=== PATIENT | female | born 1980 | race Caucasian/White ===

== ENCOUNTER 2017-05-22 06:54 | Emergency (ER) | payer SELFPAY ==
[~2017-05-22] VITALS: Ht 167.6 cm; Wt 71.6 kg
[2017-05-22 07:11] VITALS: BP 159/96; PULSE 81; RESP 18; TEMP 97.3; O2SAT 99
[2017-05-22] MEDS ORDERED: SODIUM CHLOR 0.9% 1000 ML INJ 1,000 ML IV SCH (10:26)
[2017-05-22] MEDS ORDERED: SODIUM CHLORIDE 0.9% FLUSH 10 ML FLUSH IV FLUSH PRN (10:30)
[2017-05-22] MEDS ORDERED: MORPHINE SULFATE 4 MG/ML INJ IV PUSH ONE (10:30)
[2017-05-22] MEDS ORDERED: ONDANSETRON HCL 4 MG/2 ML VIAL IVP ONE (10:30)
[2017-05-22] MEDS ORDERED: KETOROLAC TROMETHAMINE 30 MG/ML (IVP) VIAL IVP ONE (10:30)
--- NOTE | 2017-05-22 10:33 | PD ---
HPI Chief Complaint: Flank/Kidney Pain Time Seen by Provider: 10:21 Travel History International Travel<30 days: No Contact w/Intl Traveler<30days: No Traveled to known affect area: No History of Present Illness HPI The patient is a 36-year-old female who presents to the emergency department for nausea, vomiting, and abdominal pain. The patient states she was awakened at 3 AM with abdominal pain. Abdominal pain is located mostly in the epigastrium, radiates to her flanks bilaterally, was associated with one episode of nausea and vomiting upon arrival to the emergency department. The patient denies any acute diarrhea or constipation. 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 She denies any dysuria, frequency, urgency, or hematuria. She denies any chest pain, shortness breath, fever, chills, or sweats. Symptoms are moderate, there are no current alleviating or exacerbating factors. PFSH Past Medical History Medical History: Denies Significant Hx Past Surgical History Narrative Surgical congenital absence of uterus Social History Alcohol Use: Yes (occasional) Tobacco Use: No Allergies-Medications (Allergen,Severity, Reaction): Coded Allergies: No Known Allergies (Unverified , 05/22/17) Review of Systems Except as stated in HPI: all other systems reviewed are Neg General / Constitutional: No: Fever Cardiovascular: No: Chest Pain or Discomfort Respiratory: No: Shortness of Breath Gastrointestinal: Positive: Nausea, Vomiting, Abdominal Pain, No: Diarrhea, Constipation, Changes in Bowel Habits Genitourinary: Positive: Other (congenital absence of uterus), No: Urgency, Frequency, Dysuria, Hematuria Skin: No Rash Physical Exam Narrative GENERAL: Awake, alert, pleasant 36-year-old female who appears her stated age and is in no acute respiratory distress. She does appear in mild discomfort. SKIN: Focused skin assessment warm/dry. Freckling of the abdominal wall noted. HEAD: Atraumatic. Normocephalic. EYES: Pupils equal and round. No scleral icterus. No injection or drainage. ENT: No nasal bleeding or discharge. Mucous membranes pink and moist. NECK: Trachea midline. No JVD. CARDIOVASCULAR: Regular rate and rhythm. No murmur appreciated. RESPIRATORY: No accessory muscle use. Clear to auscultation. Breath sounds equal bilaterally. GASTROINTESTINAL: Abdomen soft, mild tenderness in the left and right upper quadrant as well as left lower quadrant. Negative McBurney's. MUSCULOSKELETAL: No obvious deformities. No clubbing. No cyanosis. No edema. NEUROLOGICAL: Awake and alert. No obvious cranial nerve deficits. Motor grossly within normal limits. Normal speech. PSYCHIATRIC: Appropriate mood and affect; insight and judgment normal. Data Data Last Documented VS Vital Signs Date Time Temp Pulse Resp B/P (MAP) Pulse Ox O2 Delivery O2 Flow Rate FiO2 05/22/17 11:36 16 05/22/17 11:23 98 Room Air 05/22/17 07:11 97.3 81 Orders Orders Complete Blood Count With Diff (05/22/17 10:26) Comprehensive Metabolic Panel (05/22/17 10:26) Lipase (05/22/17 10:26) Urinalysis - C+S If Indicated (05/22/17 10:26) Iv Access Insert/Monitor (05/22/17 10:26) Ecg Monitoring (05/22/17 10:26) Oximetry (05/22/17 10:26) Morphine Inj (Morphine Inj) (05/22/17 10:30) Ondansetron Inj (Zofran Inj) (05/22/17 10:30) Sodium Chlor 0.9% 1000 Ml Inj (Ns 1000 M (05/22/17 10:26) Sodium Chloride 0.9% Flush (Ns Flush) (05/22/17 10:30) Ketorolac Inj (Toradol Inj) (05/22/17 10:30) Ct Abd/Pel W/O Iv Contrast (05/22/17 ) Labs Laboratory Tests Test 05/22/17 10:45 05/22/17 10:56 05/22/17 11:50 Urine Collection Type CLEAN CATCH Urine Color YELLOW Urine Turbidity CLEAR Urine pH 7.0 Urine Specific [place] 1.026 Urine Protein NEG mg/dL Urine Glucose (UA) NEG mg/dL Urine Ketones TRACE mg/dL Urine Occult Blood NEG Urine Nitrite NEG Urine Bilirubin NEG Urine Leukocyte Esterase NEG Urine RBC 0-3 /hpf Urine WBC 0-2 /hpf Urine Transitional Epithelial Cells 6-8 /hpf Microscopic Urinalysis Comment CULT NOT INDICATED Urine Collection Time 10:45 White Blood Count 9.3 TH/MM3 Red Blood Count 4.64 MIL/MM3 Hemoglobin 14.0 GM/DL Hematocrit 41.4 % Mean Corpuscular Volume 89.3 FL Mean Corpuscular Hemoglobin 30.2 PG Mean Corpuscular Hemoglobin Concent 33.8 % Red Cell Distribution Width 12.9 % Platelet Count 306 TH/MM3 Mean Platelet Volume 8.4 FL Neutrophils (%) (Auto) 89.5 % Lymphocytes (%) (Auto) 7.4 % Monocytes (%) (Auto) 1.3 % Eosinophils (%) (Auto) 0.3 % Basophils (%) (Auto) 1.5 % Neutrophils # (Auto) 8.4 TH/MM3 Lymphocytes # (Auto) 0.7 TH/MM3 Monocytes # (Auto) 0.1 TH/MM3 Eosinophils # (Auto) 0.0 TH/MM3 Basophils # (Auto) 0.1 TH/MM3 CBC Comment DIFF FINAL Differential Comment Blood Urea Nitrogen 14 MG/DL Creatinine 0.66 MG/DL Random Glucose 111 MG/DL Total Protein 6.8 GM/DL Albumin 3.5 GM/DL Calcium Level 8.3 MG/DL Alkaline Phosphatase 81 U/L Aspartate Amino Transf (AST/SGOT) 15 U/L Alanine Aminotransferase (ALT/SGPT) 23 U/L Total Bilirubin 0.4 MG/DL Sodium Level 136 MEQ/L Potassium Level 4.0 MEQ/L Chloride Level 102 MEQ/L Carbon Dioxide Level 28.4 MEQ/L Anion Gap 6 MEQ/L Estimat Glomerular Filtration Rate 100 ML/MIN Lipase 129 U/L MDM Medical Decision Making Medical Screen Exam Complete: Yes Emergency Medical Condition: Yes Medical Record Reviewed: Yes Interpretation(s) Laboratory Tests Test 05/22/17 10:45 05/22/17 10:56 05/22/17 11:50 Urine Collection Type CLEAN CATCH Urine Color YELLOW Urine Turbidity CLEAR Urine pH 7.0 Urine Specific [place] 1.026 Urine Protein NEG mg/dL Urine Glucose (UA) NEG mg/dL Urine Ketones TRACE mg/dL Urine Occult Blood NEG Urine Nitrite NEG Urine Bilirubin NEG Urine Leukocyte Esterase NEG Urine RBC 0-3 /hpf Urine WBC 0-2 /hpf Urine Transitional Epithelial Cells 6-8 /hpf Microscopic Urinalysis Comment CULT NOT INDICATED Urine Collection Time 10:45 White Blood Count 9.3 TH/MM3 Red Blood Count 4.64 MIL/MM3 Hemoglobin 14.0 GM/DL Hematocrit 41.4 % Mean Corpuscular Volume 89.3 FL Mean Corpuscular Hemoglobin 30.2 PG Mean Corpuscular Hemoglobin Concent 33.8 % Red Cell Distribution Width 12.9 % Platelet Count 306 TH/MM3 Mean Platelet Volume 8.4 FL Neutrophils (%) (Auto) 89.5 % Lymphocytes (%) (Auto) 7.4 % Monocytes (%) (Auto) 1.3 % Eosinophils (%) (Auto) 0.3 % Basophils (%) (Auto) 1.5 % Neutrophils # (Auto) 8.4 TH/MM3 Lymphocytes # (Auto) 0.7 TH/MM3 Monocytes # (Auto) 0.1 TH/MM3 Eosinophils # (Auto) 0.0 TH/MM3 Basophils # (Auto) 0.1 TH/MM3 CBC Comment DIFF FINAL Differential Comment Blood Urea Nitrogen 14 MG/DL Creatinine 0.66 MG/DL Random Glucose 111 MG/DL Total Protein 6.8 GM/DL Albumin 3.5 GM/DL Calcium Level 8.3 MG/DL Alkaline Phosphatase 81 U/L Aspartate Amino Transf (AST/SGOT) 15 U/L Alanine Aminotransferase (ALT/SGPT) 23 U/L Total Bilirubin 0.4 MG/DL Sodium Level 136 MEQ/L Potassium Level 4.0 MEQ/L Chloride Level 102 MEQ/L Carbon Dioxide Level 28.4 MEQ/L Anion Gap 6 MEQ/L Estimat Glomerular Filtration Rate 100 ML/MIN Lipase 129 U/L CT of the abdomen and pelvis without contrast reveals multiple small calcified gallstones with no definite gallbladder wall thickening or inflammatory change. 2.6 x 2.9 cm left ovarian cystic lesion. Unremarkable bowel gas pattern and normal appendix. Small amount of fluid in the cul-de-sac which could be a physiologic finding in a female patient of this age. Differential Diagnosis Differential diagnosis includes gastritis, pancreatitis, peptic ulcer disease, cholecystitis, choledocholithiasis, biliary colic, enteritis, ileus, viral syndrome, pyelonephritis, nephrolithiasis. Narrative Course IV was established, labs are drawn and sent, and the patient was placed on cardiac telemetry monitoring and continuous pulse oximetry monitoring. The patient was administered morphine, Toradol, Zofran, and IV fluids. UA was sent to lab. Noncontrast CT of the abdomen and pelvis was ordered. UA is unremarkable. The patient's labs are unremarkable. LFTs and lipase are within normal limits. WBC is normal. The patient was reevaluated at 12:45 PM, her symptoms had significantly improved. Abdominal exam is benign. CT did show gallstones, but no gallbladder wall thickening, she does have an ovarian cyst and physiologic fluid in the pelvis, otherwise unremarkable. Patient is afebrile labs are unremarkable which is reassuring. Abdominal exam is reassuring. She will be provided a copy of her CT results and lab results at discharge. Diagnosis Primary Impression: Abdominal pain Qualified Codes: R10.10 - Upper abdominal pain, unspecified Patient Instructions: General Instructions Additional Instructions: Medications as directed. Follow-up with your primary physician. Return if symptoms worsen or progress. Please provide the patient a copy of her CT results and lab results at discharge. Med/Other Pt SpecificInfo: Prescription(s) given Scripts Dicyclomine (Bentyl) 10 Mg Cap 10 MG PO TID Y for Bowel Management, #15 CAP 0 Refills Prov: Julian Herrera MD 05/22/17 Ondansetron Odt (Zofran Odt) 4 Mg Tab 4 MG SL Q6HR Y for Nausea/Vomiting, #10 TAB 0 Refills Prov: Julian Herrera MD 05/22/17 Hydrocodone-Acetaminophen ([place]) 5-325 mg Tab 1 TAB PO Q6H Y for PAIN, #15 TAB 0 Refills Prov: Julian Herrera MD 05/22/17 Disposition: 01 DISCHARGE HOME Condition: Stable Julian Herrera MD May 22, 2017 10:33
[2017-05-22 11:04] LABS: BLOOD, URINE NEG (NEG); GLUCOSE,URINE NEG (NEG); KETONE, URINE TRACE mg/dL (NEG); NITRITE,URINE NEG (NEG)
[2017-05-22 11:13] LABS: COMMENT (UR) CULT NOT INDICATED; CULTURE IF INDICATED CULT NOT INDICATED; METHOD OF COLLECTION CLEAN CATCH; RBC, URINE 0-3 /hpf (0-3); URINE COLOR YELLOW (YELLW/STRAW); WBC, URINE 0-2 /hpf (0-5)
[2017-05-22 11:19] LABS: AUTOMATED NEUTROPHIL # 8.4 TH/MM3 (1.8-7.7); BASOPHIL # 0.1 TH/MM3 (0-0.2); BASOPHIL % 1.5 % (0.0-2.0); EOSINOPHIL % 0.3 % (0.0-4.0); HEMATOCRIT 41.4 % (35.0-46.0); HEMO FLAGS DIFF FINAL; LYMPH % 7.4 % (9.0-44.0); LYMPHOCYTE # 0.7 TH/MM3 (1.0-4.8); MEAN CELL VOLUME 89.3 FL (80.0-100.0); MEAN CORPUSCULAR HEMOGLOBIN 30.2 PG (27.0-34.0); MEAN CORPUSCULAR HGB CONC 33.8 % (32.0-36.0); MONO % 1.3 % (0.0-8.0); NEUT % 89.5 % (16.0-70.0); PLATELET COUNT 306 TH/MM3 (150-450); RED BLOOD COUNT 4.64 MIL/MM3 (4.00-5.30); RED CELL DISTRIBUTION WIDTH 12.9 % (11.6-17.2); WHITE BLOOD COUNT 9.3 TH/MM3 (4.0-11.0)
[2017-05-22 11:23] VITALS: RESP 18; O2SAT 98
[2017-05-22 12:06] LABS: CHLORIDE 102 MEQ/L (98-107); SODIUM (NA) 136 MEQ/L (136-145)
[2017-05-22 12:09] LABS: ANION GAP 6 MEQ/L (5-15); BICARBONATE 28.4 MEQ/L (21.0-32.0)
[2017-05-22 12:10] LABS: BLOOD UREA NITROGEN 14 MG/DL (7-18)
[2017-05-22 12:12] LABS: ALT (GPT) 23 U/L (10-53); AST (GOT) 15 U/L (15-37); GLOMERULAR FILTRATION RATE 100 ML/MIN (>89)
[2017-05-22 12:14] LABS: TOTAL BILIRUBIN ADULT 0.4 MG/DL (0.2-1.0)
[2017-05-22 12:15] LABS: ALKALINE PHOSPHATASE 81 U/L (45-117)
--- NOTE | 2017-05-22 12:30 | RADRPT ---
EXAM DATE/TIME: 05/22/2017 12:15 [facility] COMPARISON: No previous studies available for comparison. INDICATIONS : Diffuse abdominal pain. ORAL CONTRAST: No oral contrast ingested. RADIATION DOSE: 10.20 CTDIvol (mGy) MEDICAL HISTORY : None SURGICAL HISTORY : None. ENCOUNTER: Initial ACUITY: 1 day PAIN SCALE: 1/10 LOCATION: Bilateral abdomen TECHNIQUE: Volumetric scanning of the abdomen and pelvis was performed. Using automated exposure control and ad justment of the mA and/or kV according to patient size, radiation dose was kept as low as reasonably achievable to obtain optimal diagnostic quality images. DICOM format image data is available electro nically for review and comparison. FINDINGS: LOWER LUNGS: The visualized lower lungs are clear. LIVER: Homogeneous density without lesion. There is no dilation of the biliary tree. There are multiple sma ll calcified gallstones. There is no definite wall thickening or inflammatory change. SPLEEN: Normal size without lesion. PANCREAS: Within normal limits. KIDNEYS: Normal in size and shape. There is no mass, stone, or hydronephrosis. ADRENAL GLANDS: Within normal limits. VASCULAR: There is no aortic aneurysm. BOWEL/MESENTERY: No oral contrast was given limiting the sensitivity. The stomach, small bowel, and colon demonstrate no acute abnormality. There is no free intraperitoneal air or fluid. ABDOMINAL WALL: Within normal limits. RETROPERITONEUM: There is no lymphadenopathy. BLADDER: No wall thickening or mass. REPRODUCTIVE: There is a small amount of fluid in the cul-de-sac. There is a cystic 2.9 x 2.6 cm lesion in the left ovary. INGUINAL: There is no lymphadenopathy or hernia. MUSCULOSKELETAL: Within normal limits for patient age. CONCLUSION: 1. Multiple small calcified gallstones with no definite gallbladder wall thickening or inflammatory c hange. 2. 2.6 x 2.9 cm left ovarian cystic lesion. 3. Unremarkable bowel gas pattern and normal appendix. 4. Small amount of fluid in the cul-de-sac which could be a physiologic finding in a female patient o f this age. Jaime Sánchez MD on May 22, 2017 at 12:23 Board Certified Radiologist. This report was verified electronically.
[2017-05-22] MEDS ORDERED: DICY10 PO (12:49)
[2017-05-22] MEDS ORDERED: NORC5TAB PO (12:49)
[2017-05-22] MEDS ORDERED: ZOFR4TAB3 SL (12:49)
[2017-05-22 13:18] VITALS: BP 140/82; PULSE 80; RESP 18; O2SAT 99
== END 2017-05-22 13:18 | disposition home or self-care (01) ==
LOC: PHED 06:54 → PHEFT 13:18
DX: R10.10 Upper abdominal pain, unspecified (principal); R11.2 Nausea with vomiting, unspecified
CPT/HCPCS: 74176; 80053; 81001; 83690; 85025; 96361; 96374; 96375; 99285; J1885; J2270; J2405; J7030